=== PATIENT | male | born 1980 | race Two or more races ===

== ENCOUNTER 2023-09-24 17:30 | Outpatient (RCR) | payer SELFPAY | END 2023-09-29 23:59 | LOC: NS 17:30 | DX: Z71.3 Dietary counseling and surveillance (principal) ==

== ENCOUNTER 2024-01-04 12:08 | Outpatient (RCR) | payer SELFPAY | END 2024-01-30 23:59 | LOC: NS 12:08 | DX: Z71.3 Dietary counseling and surveillance (principal) ==